=== PATIENT | female | born 1970 | race Native Hawaiian/Other Pacific Islander ===

== ENCOUNTER 2020-05-07 22:04 | Emergency (ER) | payer OTHER ==
[~2020-05-07] VITALS: Ht 152.4 cm; Wt 56.7 kg
[2020-05-07] MEDS ORDERED: SERT50TA PO (22:30)
[2020-05-07 23:31] LABS: POTASSIUM 2.9 mmol/L (3.6-5.2); SODIUM 139 mmol/L (136-145)
[2020-05-07 23:56] LABS: PLATELET COUNT 138 K/uL (152-353)
[2020-05-08 01:32] VITALS: BP 114/72; TEMP 98.8
== END 2020-05-08 01:25 | disposition home or self-care (01) ==
LOC: ED 22:04
PROVIDERS: Emergency Medicine Emergency Medical Services
DX: B34.9 Viral infection, unspecified (principal); E87.6 Hypokalemia; Z20.828 Contact with and (suspected) exposure to other viral communicable diseases
CPT/HCPCS: 80053; 81000; 84484; 85027; 87635; 93005; 96372; 99283; J1170; U00003